=== PATIENT | male | born 1985 | race Caucasian/White ===

== ENCOUNTER 2019-02-07 13:49 | Outpatient (CLI) | payer OTHER ==
--- NOTE | 2019-02-08 09:46 | MRI Report ---
Reason: RT SHOULDER PAIN Procedure Date: 02/07/2019 Accession Number: [id number] / [id number] Procedure: MRI - Shoulder RT W/O CPT Code: Final Report FULL RESULT: EXAM: RIGHT SHOULDER MRI WITHOUT CONTRAST EXAM DATE: 02/07/2019 02:45 PM. CLINICAL HISTORY: Right shoulder pain. Trauma to right shoulder 3 years ago. COMPARISON: None. TECHNIQUE: Multiplanar, multisequence T1-weighted and fluid-sensitive sequences of the shoulder without contrast. Other: None. FINDINGS: Acromioclavicular Region: The acromion is type II. The acromioclavicular joint is unremarkable. The coracoacromial and coracoclavicular ligaments are intact. Trace fluid subscapularis bursa. Glenohumeral Region: No subluxation. No effusion or loose bodies. Moderate chondromalacia anterior glenoid. The glenohumeral ligaments and joint capsule are unremarkable. Bone Marrow: No fracture, marrow edema or bone lesions. Labrum: The labrum is unremarkable on this nonarthrographic study. Musculature/Rotator Cuff: Negative for complete rotator cuff tear. Focal supraspinatus tendinosis 1.3 cm in transverse dimension and 1.2 cm in AP dimension. Tiny focus of intratendinous fluid signal supraspinatus tendon (image 17 series 701). Small possible 1.5 mm thickness partial undersurface tear distal inferior subscapularis tendon. Possible linear interstitial tear contiguous with the small undersurface tear. Rotator cuff muscles negative for atrophy or edema. Biceps Tendon: The long head of the biceps tendon and biceps cornelio are intact. Other: The subcutaneous tissues are unremarkable. IMPRESSION: 1. Negative for complete rotator cuff tear. 2. Supraspinatus tendinosis. 3. Small partial tear undersurface distal subscapularis tendon with possible proximal interstitial extension. RADIA
== END 2019-02-07 13:50 | disposition home or self-care (01) ==
LOC: DI 13:49
PROVIDERS: ATTEND Student in an Organized Health Care Education/Training Program
DX: S46.011A Strain of muscle(s) and tendon(s) of the rotator cuff of right shoulder, initial encounter (principal); M75.91 Shoulder lesion, unspecified, right shoulder

== ENCOUNTER 2019-02-25 12:55 | Outpatient (CLI) | payer OTHER ==
[2019-02-27 20:58] VITALS: BP 144/78
--- NOTE | 2019-02-27 20:58 | SLEEP CARE CONSULTATION ---
Information from patient questionnaire entered by Zulay Nelson. I have reviewed and concur with the information entered by Zulay Nelson. This document represents the service I personally performed and the decisions made by me, Micaela Ceja MD, [facility]. History of Present Illness Reason for Visit: New patient Chief Complaint: reports: Insomnia, Unrefreshed sleep, Snoring, Observed pauses in breathing, Fatigue, Frequent awakenings at night Duration of Symptoms: 10 YEARS Usual bedtime: 5485-3211 Time it takes to fall asleep: 1 hour Snores at night: Yes Observed to quit breathing while asleep: Yes Sleeps alone due to snoring: No Number of times waking at night: 4-5 Reasons for waking at night: reports: Choking, Snoring, Pain Toss, Turn, or Twitch while sleeping: Yes Recalls having dreams: No Usually gets out of bed at: 0530 Feels refreshed in the morning: No Morning headache: No Sleepy or fatigued during the day: Yes Ever fallen asleep while driving: No Takes day naps: Yes Dreams during day naps: Yes Prior sleep studies: No Additional HPI information: I had the pleasure of seeing Mr. Potter today regarding the possibility of him having a sleep disorder. As you know, he is a 33 year old gentleman who complains of insomnia, loud snore, observed apneas, frequent awakenings, unrefreshed sleep, and persistent fatigue. He works shifts. The patient tells me that he normally goes to bed around 10 - 11 pm, and it takes him approximately 60 minutes to fall asleep. He has been told that he snores loudly and irregularly at night. He has also been observed to stop breathing in his sleep. His can still sleep in the same bed. He can recall waking up on the average of 4 - 5 times during the night. Most of the time he wakes up because of pain. He has awakened occasionally because of his own snoring, choking, and having to gasp for air. There is a lot of tossing and turning in his sleep. No somniloquy (sleep talking) or somnambulism (sleep walking). Generally there is no recollection of dreams. In the morning he usually gets up out of the bed around 5:30 a.m. not feeling refreshed nor rested. He usually does not have a morning headache. During the day he complains of feeling sleepy and fatigued. His score on Edward Sleepiness Scale is 7 out of 24. He has never fallen asleep while driving nor has had any accident due to sleepiness. He usually takes naps during the day. Upon falling asleep during the day he reports having dreams. He has never had sleep paralysis, experienced cataplexy or symptoms of restless leg syndrome. He reports having impaired concentration during the day. Subjective Initial Edward Sleepiness Scale score: 7 Past Medical History Past Medical History: reports: Anxiety, Other (rotator cuff tear) Social History The patient's occupation is active . Patient is and lives in [place]. Have you smoked in the past 12 months: Yes Cigarettes per day (20/pack): 2 Years of smokin Smoking Pack Years: 1.0 Alcohol use: No Caffeine use: Yes Caffeine amount and frequency: 3-4 daily Family History Family history of sleep disordered breathing: Yes Family Hx Sleep Apnea: Father: Snoring Allergies and Home Medications Drug allergies reviewed: Yes Home medication list reviewed: Yes (Paxil) Review of Systems Weight loss over past 5 years: 30 Cardiovascular: denies: high blood pressure, palpitations, chest pain, irregular heart rate or pulse, leg or foot swelling, have to sleep sitting up, other Respiratory: denies: shortness of breath, wheeze, sputum production, chronic cough, other Gastrointestinal: denies: heartburn, difficulty swallowing, nausea, vomitting, diarrhea, abdominal pain, other Urinary: denies: incontinence, frequency, urgency, impotence, other Neurological: denies: headaches, seizure, head trauma, disorientation, speech dysfunction, gait or balance problems, fainting or unconsciousness, other Psychiatric: reports: anxiety Ear/Nose/Throat: denies: nasal congestion, sinus problems, nose bleeds, dry mouth/throat, hoarseness, injury to nose, tonsillectomy, wisdom teeth removed, other Endocrine: denies: thyroid disease, history of goiter, sluggishness, too hot or cold, excessive thirst, increased appetite, increased urination, unexplained weakness, other Musculoskeletal: reports: joint pain Immunologic: denies: sneezing, rash, itching, allergies to food or environment, other Physical Exam Vital signs obtained and entered by: Dr. Ceja Blood Pressure: 144/78 Heart Rate: 68 O2 Saturation: 98 Height: 5 ft 11 in Weight: 200 lb Body Mass Index: 27.8 BMI Classification: Overweight Neck circumference: 15.5 Mood/affect: normal HEENT: No craniofacial malformation Nostrils: partially obstructed Turbinates: swollen Septum: midline Mouth and throat: narrow oropharynx Soft palate: long Hard palate: normal Uvula: normal Uvula visualization: 50% Mallampati Class II Tongue: normal in size Tonsils: small Chin and jaw: normal size and position Neck: normal w/o lymphadenopathy or thyromegaly Heart: regular rate and rhythm Lungs: clear bilaterally Abdomen: soft, non-tender Extremities: no edema or clubbing Neurologic: intact, no focal deficits Impression and Plan IMPRESSION: 1. Obstructive Sleep Apnea-Hypopnea Syndrome, as suggested by history of loud and irregular snoring, observed cessation of breath while asleep, frequent awakenings during the night, unrefreshed sleep, cognitive impairment, and daytime hypersomnolence. Narrow oropharynx and obesity are common predisposing factors for obstructive sleep apnea-hypopnea syndrome. Pathophysiology of sleep-disordered breathing was discussed. I recommend proceeding to polysomnography to confirm the diagnosis and to assess severity. If he has significant sleep disordered breathing, a manual CPAP titration study will also be performed to find the optimal treatment pressure. I informed the patient of what the sleep studies involve and after some discussion, he agreed to proceed. Plan: 1. Schedule polysomnography + manual CPAP titration study 2. Avoid long distance driving or when feeling sleepy. 3. Avoid alcohol, sedative and muscle relaxant around bedtime. 4. Attempt to lose weight. 5. Return in 1 to 2 weeks after the study to discuss results and initiate therapy. I spent 100% of this 20 minute visit face to face with the patient with greater than 50% of this was spent time counseling the patient and coordination of care.
== END 2019-02-25 12:56 | disposition home or self-care (01) ==
LOC: SC 12:55
PROVIDERS: ATTEND Internal Medicine Pulmonary Disease
DX: R06.83 Snoring (principal); R06.81 Apnea, not elsewhere classified; G47.8 Other sleep disorders; R41.89 Other symptoms and signs involving cognitive functions and awareness; G47.10 Hypersomnia, unspecified
CPT/HCPCS: 99203; 99212

== ENCOUNTER 2019-03-03 19:19 | Outpatient (CLI) | payer OTHER | END 2019-03-03 19:20 | disposition home or self-care (01) | LOC: SC 19:19 | PROVIDERS: ATTEND Internal Medicine Pulmonary Disease | DX: R06.83 Snoring (principal); G47.8 Other sleep disorders | CPT/HCPCS: 95810 ==

== ENCOUNTER 2019-04-18 11:01 | Outpatient (CLI) | payer OTHER ==
[2019-04-18] MEDS ORDERED: BUFFERED LIDOCAINE 10 ML SYRINGE ONE (11:09)
[2019-04-18] MEDS ORDERED: BUFFERED LIDOCAINE 10 ML SYRINGE IU ONE (12:10)
--- NOTE | 2019-04-18 13:10 | Ultrasound Report ---
Reason: BICIPITAL TENDINITIS RT SHOULDER Procedure Date: 04/18/2019 Accession Number: [id number] / [id number] Procedure: US - Injection Single Tendon CPT Code: 31839 Final Report FULL RESULT: EXAM: RIGHT BICEPS TENDON SHEATH Injection with ULTRASOUND Guidance EXAM DATE: 04/18/2019 12:04 PM. CLINICAL HISTORY: BICIPITAL TENDINITIS RT SHOULDER. COMPARISON: None. TECHNIQUE: The risks, benefits, and alternatives of the procedure were discussed with the patient. All questions were answered. Written and verbal consent were obtained. The biceps tendon sheath at the shoulder joint was marked under ultrasound and prepped and draped in a sterile manner. Local anesthesia was performed with 1% lidocaine. A 22-gauge needle was then inserted into the joint. Needle placement in the joint space was confirmed with ultrasound. A solution containing 4 mL 0.5% ropivacaine and 1 mL (40 mg/mL) Depo-Medrol was then injected. The needle was removed without immediate complication. Other: None. Fluoroscopy Time: None. Number of fluoroscopy images: None. FINDINGS: Bones and joints: No fracture or subluxation. Injection: Ultrasound images demonstrate needle placement and contrast in the right biceps tendon sheath near the shoulder joint. IMPRESSION: Successful ultrasound guided injection of anesthetic and steroid in the right biceps tendon sheath at the shoulder joint. RADIA
== END 2019-04-18 11:02 | disposition home or self-care (01) ==
LOC: DI 11:01
PROVIDERS: ATTEND Orthopaedic Surgery
DX: M75.21 Bicipital tendinitis, right shoulder (principal)
CPT/HCPCS: 20550

== ENCOUNTER 2019-10-08 16:59 | Outpatient (CLI) | payer OTHER ==
[2019-10-08 16:59] VITALS: BP 118/60
--- NOTE | 2019-10-08 16:59 | SLEEP CARE CONSULTATION ---
Information from patient questionnaire entered by Clementina Arroyo. I have reviewed and concur with the information entered by Clementina Arroyo. This document represents the service I personally performed and the decisions made by me, Nicole Oliva, RN, MSN, [employer]PATCH[employer]. History of Present Illness Service Date and Time: 10/08/2019 1600 Reason for follow up: other (positional therapy, sleep diaries) HPI additional information: Since last seen, he was able to stay on day shift for the past 6 months. He has discussed his problem sleeping and fatigue when rotates shifts with his boss. He has also been diagnosed with ADHD and placed on Methylphenidate 72mg daily. He has also started sertraline 100mg HS and has noted his sleep is better and reduced insomnia from concerns on mind. When he awakens now he is able to return to sleep. He feels his sleep is averaging 5-6 hours and feels refreshed when he awakens and alert during the day. He has not felt this good in years. In addition his sleep is less fragmented by pain since he had steroid injections in right shoulder. He has completed PT for knees since Covid 19 pandemic. He was able to get a referral to an ENT. CT of sinuses completed and significant impaction and polyps. He was placed on a short burst of steroids and a course of antibiotics. He has a follow up in 2 weeks for further evaluation and treatment plan. He has noted slight improvement in nasal breathing. He did not complete sleep diaries. Current wake time 5:20 am every morning refreshed. 11-11:30 pm is bedtime due to time family obligations. Subjective Initial Charleston Sleepiness Scale score: 7 (in 2019) Allergies and Home Medications Known drug allergies: No Home medication list reviewed: Yes (see HPI) Review of Systems Review of systems same as previous: No (ADHD diagnosis ) Physical Exam Blood Pressure: 118/60 Cuff size: long Heart Rate: 76 O2 Saturation: 98 Height: 5 ft 11 in Weight: 197 lb Body Mass Index: 27.4 BMI Classification: Overweight Impression and Plan 1 Snoring that is currently being evaluated by ENT. Patient has started to have slight improvement in nasal breathing night and day. Follow up for ENT in 2 weeks. 2. Insomnia is no longer present that appears to be due to several things. One is a regular sleep schedule now that he is not rotating shifts. In addition his sleep is not being fragmented by painful shoulder. He is now waking up refreshed and is more alert and rested throught the day. 3. Fatigue is not present due to above changes as well as treatment of ADHD and anxiety. He is now able to concentrate during the day and able to sleep at night as not waking to things mind. The only additional suggestion is for him to strive for 7 hours of sleep instead of 5 -6 hours. Most people require 7-9 hours of sleep for optimal mental and physical funciton and less than 5-6 hours of sleep consistently can lead to increased health risks and mortality. He is a little over weight and advised to lose some weight to reduce snoring and apnea. * Obtain more sleep * Continue with ENT plan. * Attempt to lose weight * Avoid alcohol consumption near bedtime * Return as needed. Visit Type: In Office Time Spent with Patient (minutes): 35 Provider Statement: I spent 100% of the Face to Face Visit with the patient with greater than 50% spent counseling the patient and coordination of care.
== END 2019-10-08 17:00 | disposition home or self-care (01) ==
LOC: SC 16:59
PROVIDERS: ATTEND Nurse Practitioner Family
DX: R06.83 Snoring (principal); E66.3 Overweight; Z68.27 Body mass index [BMI] 27.0-27.9, adult; F90.1 Attention-deficit hyperactivity disorder, predominantly hyperactive type
CPT/HCPCS: 99212; 99214

== ENCOUNTER 2021-09-27 07:53 | Outpatient (CLI) | payer OTHER ==
--- NOTE | 2021-09-27 10:47 | MRI Report ---
PROCEDURE: Ankle RT W/O INDICATIONS: SPRAIN OF RIGHT ANKLE TECHNIQUE: Noncontrast Magnetic Resonance Imaging (MRI) of the ankle/hindfoot was performed utilizing the follow ing sequences: sagittal T1 spin echo, sagittal STIR, axial PD fast spin echo, axial T2 fast spin echo with fat saturation, coronal T2 spin echo with fat saturation, and coronal PD fast spin echo with fa t saturation. COMPARISON: None. FINDINGS: Image quality: Excellent. Bones and joints: No acute trabecular bone injury. Osteochondral lesion is seen at the medial talar dome measuring up t o 1.6 x 0.7 x 0.5 cm. There is irregularity of the underlying subchondral plate with subchondral orin a and subchondral cystic changes. An in situ osteochondral fragment is seen measuring up to 1.1 x 0.6 x 0.2 cm. A nonedematous ossification is seen adjacent to the distal fibular tip, which is likely th e sequela of a remote prior avulsion injury. Mild degenerative spurring is seen at the dorsal aspect of the talonavicular joint. A small mortise joint effusion is present. Medial structures: Increased signal within the deep fibers of the deltoid ligament is consistent with a remote prior low -grade sprain. The visualized spring ligament components are intact. Fluid tracking along the medial flexor tendon sheaths is most likely related to the mortise joint effusion. The posterior tibial neur ovascular bundle appears normal within the tarsal tunnel, without extrinsic mass effect. Lateral structures: There is chronic high-grade and likely complete tearing of the anterior tibiofibular ligament. The po sterior tibiofibular ligament also appears thickened and irregular. Thickening of the distal tibiofib ular syndesmosis is noted. The anterior talofibular ligament inserts onto the nonedematous ossificati on adjacent to the distal fibula. Chronic low-grade sprains of the calcaneofibular ligament and anter ior talofibular ligament. The posterior talofibular ligament is intact. There is mild tendinosis and tenosynovitis of the peroneus brevis and longus tendons. Small cyst is seen arising from the lateral sinus tarsi measuring 1.0 x 0.4 x 0.8 cm. Anterior structures: The tibialis anterior, extensor hallucis longus, and extensor digitorum longus tendons appear intact. Posterior and plantar structures: The Achilles tendon is intact. Small nonedematous posterior calcaneal enthesophyte. The medial and la teral bands of the plantar fascia are within normal limits. No disproportionate atrophy of the abduct or digiti minimi muscle. IMPRESSION: 1.Chronic osteochondral lesion at the medial talar dome measuring 1.6 x 0.7 x 0.5 cm with overlying c artilage loss, irregularity of the subchondral plate, and subchondral cystic changes and edema. An in situ osteochondral fragment is seen measuring up to 1.1 cm. 2.Chronic grade 2-3 sprains of the anterior and posterior tibiofibular ligaments with thickening of t he distal tibiofibular syndesmosis. 3.Chronic nonedematous ossification at the distal fibular tip is consistent with remote prior osseous avulsion injury, and contains the anterior talofibular ligament origin. Low-grade sprains of the ant erior talofibular ligament and calcaneofibular ligament are noted. 4.Mild peroneus brevis and longus tenosynovitis and tendinosis. 5.Chronic low-grade sprain of the deltoid ligament. Reviewed by: Cristobal Douglas MD on 09/27/2021 10:46 AM PDT Approved by: Cristobal Douglas MD on 09/27/2021 10:46 AM PDT Station ID: [id number]
== END 2021-09-27 07:54 | disposition home or self-care (01) ==
LOC: DI 07:53
PROVIDERS: ATTEND Student in an Organized Health Care Education/Training Program
DX: S93.431A Sprain of tibiofibular ligament of right ankle, initial encounter (principal); S93.491A Sprain of other ligament of right ankle, initial encounter; S93.411A Sprain of calcaneofibular ligament of right ankle, initial encounter; M89.9 Disorder of bone, unspecified; R60.0 Localized edema; S93.421A Sprain of deltoid ligament of right ankle, initial encounter; M65.9 Synovitis and tenosynovitis, unspecified